=== PATIENT | female | born 1995 | race Caucasian/White ===

== ENCOUNTER 2022-12-07 10:16 | Emergency (ER) | payer MEDICARE, MEDICAID ==
[2022-12-07 12:12] LABS: CORONAVIRUS COVID-19 NAA POSITIVE (NEGATIVE)
[2022-12-07 12:16] LABS: STREP A BY PCR NOT DETECTED (NOT DETECT)
== END 2022-12-07 12:52 | disposition home or self-care (01) ==
LOC: JD.ED 10:16
DX: U07.1 COVID-19 (principal); F17.210 Nicotine dependence, cigarettes, uncomplicated
CPT/HCPCS: 71046; 87651; 87804; 99284; U0002; 99283

== ENCOUNTER 2023-10-14 04:40 | Inpatient (IN) | payer MEDICARE, MEDICAID ==
[~2023-10-14 04:40] MED LIST: Citric Acid/Sodium Citrate Solution 30 ML Cup PO ONE; Lactated Ringers 1,000 ML IV SCH; Sodium Chloride 0.9% 10 ML Syringe FLUSH PRN
[2023-10-14] MEDS ORDERED: Lactated Ringers 1,000 ML IV SCH (05:30)
[2023-10-14] MEDS ORDERED: Oxytocin/Lactated Ringers 30 UNIT/500 ML BAG IV SCH ×2 (05:30→06:00)
[2023-10-14] MEDS: Lactated Ringers 1,000 ML IV SCH (06:00)
[2023-10-14] MEDS: Citric Acid/Sodium Citrate Solution 30 ML Cup PO ONE (06:35)
[2023-10-14] MEDS: Metoclopramide 10 MG/2 ML SDV IVPUSH ONE (06:38)
[2023-10-14] MEDS ORDERED: ceFAZolin 2 GM Vial ONE (06:43)
[2023-10-14] MEDS ORDERED: Ondansetron 4 MG/2 ML SDV ONE (06:43)
[2023-10-14] MEDS ORDERED: Morphine PF 10 MG/10 ML SDV ONE (06:43)
[2023-10-14] MEDS ORDERED: Lactated Ringers 1,000 ML ONE (06:43)
[2023-10-14 06:55] LABS: BASOPHILS ABSOLUTE AUTO 0.1 K/mm3 (0.0-0.2); BASOPHILS PERCENT AUTO 0.4 % (0.0-1.0); EOSINOPHILS ABSOLUTE AUTO 0.1 K/mm3 (0.0-0.4); EOSINOPHILS PERCENT AUTO 0.4 % (0.0-6.0); HEMATOCRIT 36.4 % (37.0-47.0); HEMOGLOBIN 12.6 gm/dl (12.0-16.0); IMMATURE GRAN ABSOLUTE AUTO 0.09 K/mm3 (0.00-0.05); IMMATURE GRAN PERCENT AUTO 0.7 % (0.0-0.4); LYMPHOCYTES ABSOLUTE AUTO 2.2 K/mm3 (1.0-4.8); MEAN CORPUSCULAR HEMOGLOBIN 29.9 pg (28.0-32.0); MEAN CORPUSCULAR HGB CONC 34.6 g/dl (32.0-36.0); MEAN CORPUSCULAR VOLUME 86.3 fl (83.0-99.0); MEAN PLATELET VOLUME 11.5 fl (9.4-12.3); MONOCYTES ABSOLUTE AUTO 1.1 K/mm3 (0.0-0.8); MONOCYTES PERCENT AUTO 8.4 % (0.0-8.0); NEUTROPHILS ABSOLUTE AUTO 9.3 K/mm3 (1.8-7.7); NEUTROPHILS PERCENT AUTO 73.1 % (41.0-71.0); PLATELET COUNT,PLT 202 K/mm3 (150-400); RED BLOOD CELL COUNT 4.22 M/mm3 (4.10-5.30); WHITE BLOOD CELL COUNT,WBC 12.67 K/mm3 (3.9-11.3)
[2023-10-14] MEDS: Metoclopramide 10 MG/2 ML SDV IM ONE (07:05)
[2023-10-14] MEDS ORDERED: ePHEDrine 50 MG/ML SDV ONE (07:15)
[2023-10-14] MEDS ORDERED: Ketorolac 30 MG/ML SDV ONE (07:44)
[2023-10-14] MEDS ORDERED: fentaNYL 100 MCG/2 ML SDV IVPUSH PRN (08:18)
[2023-10-14] MEDS ORDERED: Ondansetron 4 MG/2 ML SDV IVPUSH PRN (08:18)
[2023-10-14] MEDS ORDERED: diphenhydrAMINE 50 MG/ML SDV IVPUSH PRN ×2 (08:18→09:38)
[2023-10-14] MEDS ORDERED: Sodium Chloride 0.9% 10 ML Syringe FLUSH PRN (09:38)
[2023-10-14] MEDS ORDERED: ePHEDrine 50 MG/ML SDV IVPUSH PRN (09:38)
[2023-10-14] MEDS: Sodium Chloride 0.9% 10 ML Syringe FLUSH SCH (09:39)
[2023-10-14] MEDS: ceFAZolin 2 GM in Sodium Chloride 0.9% 50 ML IV ONE (09:39)
[2023-10-14] MEDS: Dextrose 5%-Lactated Ringers 1,000 ML IV SCH (10:08)
[2023-10-14] MEDS: Ketorolac 30 MG/ML SDV IVPUSH SCH (14:30)
[2023-10-14] MEDS: Acetaminophen/oxyCODONE 325-5 MG Tab PO PRN ×2 (15:30→20:21)
[2023-10-14] MEDS: Docusate Sodium 100 MG Cap PO PRN (20:22)
[2023-10-15 06:26] LABS: HEMATOCRIT 35.8 % (37.0-47.0); HEMOGLOBIN 12.1 gm/dl (12.0-16.0); MEAN CORPUSCULAR HEMOGLOBIN 29.5 pg (28.0-32.0); MEAN CORPUSCULAR HGB CONC 33.8 g/dl (32.0-36.0); MEAN CORPUSCULAR VOLUME 87.3 fl (83.0-99.0); MEAN PLATELET VOLUME 11.7 fl (9.4-12.3); PLATELET COUNT,PLT 175 K/mm3 (150-400); WHITE BLOOD CELL COUNT,WBC 16.46 K/mm3 (3.9-11.3)
[2023-10-15] MEDS: Ibuprofen 200 MG Tab PO SCH (08:55)
[2023-10-15] MEDS: Ibuprofen 600 MG Tab PO SCH (12:59)
[2023-10-16] MEDS ORDERED: Ibuprofen 200 MG Tab PO SCH (02:30)
[2023-10-16] MEDS: Ibuprofen 600 MG Tab PO SCH (03:09)
== END 2023-10-17 11:55 | disposition home or self-care (01) | DRG 788 ==
LOC: JD.OB 04:40
PROVIDERS: ADMIT Obstetrics & Gynecology; ATTEND Obstetrics & Gynecology
PROC: 10D00Z1 Extraction of Products of Conception, Low, Open Approach (ICD-10-PCS; principal; 2023-10-14 07:30)
DX: O99.344 Other mental disorders complicating childbirth (principal); O34.211 Maternal care for low transverse scar from previous cesarean delivery; F41.9 Anxiety disorder, unspecified; F32.A Depression, unspecified; F81.9 Developmental disorder of scholastic skills, unspecified; F20.9 Schizophrenia, unspecified; O24.429 Gestational diabetes mellitus in childbirth, unspecified control; Z3A.39 39 weeks gestation of pregnancy; Z37.0 Single live birth
CPT/HCPCS: 01961; 36415; 59025; 82947; 85025; 85027; 86592; 86850; 86900; 86901; 94762; A9270-GY; J0690; J1885; J2274; J2405; J2765; J3490; J7120; J7121